=== PATIENT | male | born 1955 | race Caucasian/White ===

== ENCOUNTER 2021-12-04 17:58 | Emergency (ER) | payer MEDICARE, OTHER ==
[2021-12-04] MEDS ORDERED: Sodium Chloride 0.9% 1,000 ML IV ONE (18:45)
== END 2021-12-04 21:45 | disposition home or self-care (01) ==
LOC: JD.ED 17:58
DX: I49.1 Atrial premature depolarization (principal); R42 Dizziness and giddiness; Z79.899 Other long term (current) drug therapy; Z87.891 Personal history of nicotine dependence
CPT/HCPCS: 36415; 71045; 80053; 83690; 83735; 84484; 85007; 85027; 93005; 93225; 93226; 96360; 99285; A9270; J7030; 93010; 99283

== ENCOUNTER 2021-12-29 07:10 | Emergency (ER) | payer MEDICARE, OTHER ==
[2021-12-29] MEDS ORDERED: Diltiazem 25 MG/5 ML SDV IVPUSH ONE (07:39)
[2021-12-29] MEDS ORDERED: Diltiazem IR 30 MG Tab PO ONE ×2 (07:39→09:34)
[2021-12-29] MEDS ORDERED: Lactated Ringers 1,000 ML IV ONE (07:46)
[2021-12-29] MEDS ORDERED: Magnesium Sulfate/Water 2 GM in Premix Bag 1 BAG IV ONE (08:20)
[2021-12-29] MEDS ORDERED: Apixaban 5 MG Tab PO ONE (09:21)
== END 2021-12-29 12:10 | disposition home or self-care (01) ==
LOC: JD.ED 07:10
DX: I48.91 Unspecified atrial fibrillation (principal); E83.42 Hypomagnesemia; Z79.01 Long term (current) use of anticoagulants; Z86.16 Personal history of COVID-19; Z87.891 Personal history of nicotine dependence
CPT/HCPCS: 36415; 78452; 78452-26; 80053; 83735; 85025; 93005; 93010; 93017; 96361; 96365; 96366; 96375; 99284; 99285-25; A9270-GY; A9500; J2785; J3475; J3490; J7120

== ENCOUNTER 2024-06-20 10:46 | Emergency (ER) | payer MEDICARE, OTHER ==
[2024-06-20] MEDS: diphenhydrAMINE 50 MG/ML SDV IVPUSH ONE (11:58)
[2024-06-20] MEDS: LORazepam 2 MG/ML SDV IVPUSH ONE (11:58)
[2024-06-20] MEDS: Ondansetron 4 MG/2 ML SDV IVPUSH ONE (11:58)
[2024-06-20] MEDS: Sodium Chloride 0.9% 10 ML Syringe FLUSH PRN (11:59)
[2024-06-20 12:02] LABS: BASOPHILS PERCENT AUTO 0.3 % (0.0-1.0); EOSINOPHILS ABSOLUTE AUTO 0.1 K/mm3 (0.0-0.4); EOSINOPHILS PERCENT AUTO 0.8 % (0.0-6.0); HEMATOCRIT 45.7 % (42.0-52.0); HEMOGLOBIN 15.7 gm/dl (14.0-18.0); IMMATURE GRAN ABSOLUTE AUTO 0.04 K/mm3 (0.00-0.05); IMMATURE GRAN PERCENT AUTO 0.4 % (0.0-0.4); LYMPHOCYTES ABSOLUTE AUTO 1.7 K/mm3 (1.0-4.8); LYMPHOCYTES PERCENT AUTO 18.2 % (24.0-44.0); MEAN CORPUSCULAR HEMOGLOBIN 29.9 pg (28.0-32.0); MEAN CORPUSCULAR HGB CONC 34.4 g/dl (32.0-36.0); MEAN PLATELET VOLUME 9.3 fl (9.4-12.4); MONOCYTES ABSOLUTE AUTO 0.4 K/mm3 (0.0-0.8); MONOCYTES PERCENT AUTO 4.5 % (0.0-8.0); NEUTROPHILS ABSOLUTE AUTO 7.1 K/mm3 (1.8-7.7); NEUTROPHILS PERCENT AUTO 75.8 % (41.0-71.0); PLATELET COUNT,PLT 270 K/mm3 (150-400); RED BLOOD CELL COUNT 5.25 M/mm3 (4.52-5.90); WHITE BLOOD CELL COUNT,WBC 9.31 K/mm3 (3.9-11.3)
[2024-06-20 12:28] LABS: A/G RATIO 0.9 (1-2); ALBUMIN 3.4 g/dl (3.4-5.0); BILIRUBIN TOTAL 0.7 mg/dL (0.2-1.0); BUN/CREATININE RATIO 12.2 (14-18); CALCIUM 8.8 mg/dL (8.5-10.1); CREATININE 0.9 mg/dL (0.7-1.3); EST CRCL DRUG DOSING (CG) 77.46 mL/min; PROTEIN TOTAL,TP 7.4 g/dl (6.4-8.2)
== END 2024-06-20 13:54 | disposition home or self-care (01) ==
LOC: JD.ED 10:46
DX: R42 Dizziness and giddiness (principal); R11.2 Nausea with vomiting, unspecified; Z86.16 Personal history of COVID-19; Z79.01 Long term (current) use of anticoagulants; Z79.899 Other long term (current) drug therapy
CPT/HCPCS: 36415; 80053; 85025; 96374; 96375; 99284; J1200; J2060; J2405